=== PATIENT | female | born 1955 | race Caucasian/White ===

== ENCOUNTER 2019-06-23 15:15 | Inpatient (IN) | payer MEDICAID ==
[~2019-06-23] VITALS: Ht 157.5 cm; Wt 60.8 kg
[2019-06-23 15:18] VITALS: BP 147/76
--- NOTE | 2019-06-23 15:23 | NUR ---
W/C ASSIST TO BED 04
--- NOTE | 2019-06-23 15:28 | NUR ---
BIB DAUGHTER WITH CC: N/V X 2 WEEKS INITIALLY WOULD ONLY VOMIT ONCE DAILY. NOW PT WOULD "VOMIT ALL DAY". ALSO STATES LLQ PAIN X TODAY ERYTHEMATOUS LESIONS ON RT BREAST COVERED WITH DRESSING FROM HOME HX- RT BREAST CA DX IN SUMMER 2018 (NO [place])
--- NOTE | 2019-06-23 15:36 | NUR ---
DR. SILVA EVALUATING PT AT BEDSIDE
--- NOTE | 2019-06-23 15:38 | NUR ---
LABS DRAWN AT BEDSIDE VIA LT AC 20.
[2019-06-23] MEDS ORDERED: NACL 0.9% 1,000 ML IV SCH (15:41)
[2019-06-23] MEDS ORDERED: MORPHINE SULFATE 2 MG/ML SYR IVP ONE (15:45)
[2019-06-23] MEDS ORDERED: ONDANSETRON 4 MG/2 ML VIAL IVP ONE (15:45)
--- NOTE | 2019-06-23 15:46 | NUR ---
EMT AT BEDSIDE FOR EKG
--- NOTE | 2019-06-23 15:48 | NUR ---
INTERN RETAIL AT BEDSIDE
[2019-06-23 15:56] LABS: BASOPHILS % (AUTO) 0.4 % (0.0-2.0); EOSINOPHILS % (AUTO) 0.3 % (0.0-4.0); HEMATOCRIT 41.4 % (36-48); HEMOGLOBIN 13.8 g/dL (12.0-16.0); LYMPHOCYTES # (AUTO) 1.5 K/uL (2.5-16.5); LYMPHOCYTES % (AUTO) 14.2 % (20.5-51.1); MEAN CORPUSCULAR HEMOGLOBIN 29 pg (27-31); MEAN CORPUSCULAR HGB CONC 33 g/dL (33-37); MEAN CORPUSCULAR VOLUME 85.9 fL (80-94); MONOCYTES # (AUTO) 0.5 K/uL (0.8-1.0); MONOCYTES % (AUTO) 4.9 % (1.7-9.3); NEUTROPHILS # (AUTO) 8.3 K/uL (1.8-7.7); NEUTROPHILS % (AUTO) 80.2 % (42.2-75.2); PLATELET COUNT (AUTO) 263 K/uL (140-450); RED BLOOD CELL COUNT(AUTO) 4.81 MIL/uL (4.20-5.40); RED CELL DISTRIBUTION WIDTH 14.8 % (11.6-13.7); WHITE BLOOD COUNT (AUTO) 10.4 K/uL (4.8-10.8)
--- NOTE | 2019-06-23 16:03 | NUR ---
PT STATES SHE JUST VOIDED BEFORE CHECKING INTO ER. UNABLE TO PROVIDE URINE SAMPLE AT THIS TIME. IVF INFUSING THROUGH LT AC 20 AT THIS TIME. PT IS CONTINENT. DAUGHTER WILL LET STAFF KNOW WHEN PT IS READY TO PROVIDE URINE SAMPLE.
[2019-06-23 16:09] LABS: PROTHROMBIN TIME 12.1 secs (10.8-13.4)
[2019-06-23 16:11] LABS: ALBUMIN 3.3 g/dL (3.4-5.0); ANION GAP 17.1 (8-16); CREATININE 1.1 mg/dL (0.6-1.3); POTASSIUM 3.1 mmol/L (3.5-5.1); TOTAL BILIRUBIN 0.3 mg/dL (0.0-1.0)
--- NOTE | 2019-06-23 16:32 | NUR ---
CAMPAIGN ASSOCIATE AT BEDSIDE TO TAKE PATIENT TO CT
--- NOTE | 2019-06-23 16:32 | NUR ---
PT STATES SHE WILL TRY TO PROVIDE URINE SAMPLE AFTER CT SCAN
[2019-06-23] MEDS ORDERED: POTASSIUM CHL 30 MEQ/ D5-1/2NS 1,000 ML IV ONE (16:35)
--- NOTE | 2019-06-23 16:35 | NUR ---
TO CT [place]AN [place]
[2019-06-23] MEDS ORDERED: POTASSIUM CHL 40 MEQ/ D5-1/2NS 1,000 ML IV ONE ×2 (16:45→16:50)
--- NOTE | 2019-06-23 16:57 | NUR ---
PT STILL IN CT SCAN, WILL ADMIN ORDERED D5-1/2NS-40 MEQ POTASSIUM WHEN PT IS BACK FROM CT.
[2019-06-23] MEDS ORDERED: VANCOMYCIN 1,000 MG in DEXTROSE 5% 250 ML IV ONE (17:10)
[2019-06-23] MEDS ORDERED: PIPERACILLIN/TAZOBACTAM 3.375 GM in DEXTROSE 5% 50 ML IV ONE (17:10)
--- NOTE | 2019-06-23 17:16 | NUR ---
WALKED URINE SAMPLE TO LAB
[2019-06-23] MEDS ORDERED: PIPERACILLIN/TAZOBACTAM 3.375 GM VIAL IV ONE ×2 (17:17→22:50)
[2019-06-23] MEDS ORDERED: VANCOMYCIN 1,000 MG VIAL ONE (17:17)
[2019-06-23 17:19] LABS: APPEARANCE,URINE CLEAR (CLEAR); BILIRUBIN,URINE NEGATIVE (NEGATIVE); BLOOD, URINE NEGATIVE (NEGATIVE); COLOR,URINE YELLOW (YELLOW); LEUKOCYTE ESTERASE ,URINE NEGATIVE (NEGATIVE); NITRITE, URINE NEGATIVE (NEGATIVE); PH,URINE 6.5 (5.0-9.0); UGLUCOSE NEGATIVE (NEGATIVE)
--- NOTE | 2019-06-23 17:38 | NUR ---
PT STATES "I FEEL A LOT BETTER NOW"
[2019-06-23] MEDS: NACL 0.9% 1,000 ML IV SCH (17:39)
[2019-06-23] MEDS ORDERED: DOCUSATE SODIUM 100 MG GELCAP PO PRN (17:40)
[2019-06-23] MEDS ORDERED: ACETAMINOPHEN 325 MG TAB PO PRN (17:40)
[2019-06-23] MEDS ORDERED: ONDANSETRON 4 MG/2 ML VIAL IM/IVP PRN (17:40)
--- NOTE | 2019-06-23 17:40 | NUR ---
DR SILVA RE-EVALUATING PT AT BEDSIDE
[2019-06-23 18:11] LABS: BARBITURATE, URINE NEGATIVE ng/ml (NEG <=200); BENZODIAZEPINE, URINE NEGATIVE ng/mL (NEG <=200); CANNABINOID, URINE NEGATIVE ng/mL (NEG <=50); COCAINE, URINE NEGATIVE ng/mL (NEG <=300); OPIATE, URINE POSITIVE ng/mL (NEG <=2000); PHENCYCLIDINE SCREEN,URINE NEGATIVE ng/mL (NEG <=25)
[2019-06-23 18:24] LABS: PHOSPHORUS 4.1 mg/dL (2.5-4.9); THYROID STIMULATING HORMONE 2.06 uIU/mL (0.34-3.74)
--- NOTE | 2019-06-23 18:40 | NUR ---
Patient will be admitted to care of DR QURESHI. Admited to MED SURG. Will go to room 106A. Belongings list completed. Report to BRITANY ARANDA.
--- NOTE | 2019-06-23 19:18 | NUR ---
RECEIVED REPORT FROM BRITANY ARANDA AND NAV ARANDA DAYSHIFT NURSES AT BEDSIDE FOR CONTINUITY OF CARE. PT IN STABLE CONDITION NO C/O OF PAIN , RESPIRATORY DISTRESS OR NAUSEA. PT IN LOW BED AND ALL FALLS PRECAUTIONS IN PLACE.
[2019-06-23] MEDS ORDERED: DEXTROSE 50% 50 ML SYR IVP PRN (19:20)
[2019-06-23] MEDS ORDERED: INSULIN LISPRO SLIDING SCALE 100 UNITS/ML VIAL SUBQ PRN (19:20)
[2019-06-23 19:30] VITALS: BP 120/78
--- NOTE | 2019-06-23 20:00 | NUR ---
MD RESIDENT SHRUTI MADE AWARE THAT LACTIC ACID TRENDING DOWN NOW NEW ORDERS. MD IS AT PT BEDSIDE EVALUATING PT. PT CONTINUES TO RUN VANCOMYCIN AT THIS TIME IV SITES ON R AND LEFT AC INTACT AND ASYMPTOMATIC. ALL FALLS PRECAUTIONS IN PLACE.
[2019-06-23] MEDS ORDERED: VANCOMYCIN PER PHARMACY MC PRN (20:35)
[2019-06-23] MEDS: BLOOD GLUCOSE MONITORING 1 DEV DEV FS SCH (21:00)
--- NOTE | 2019-06-23 21:00 | NUR ---
PT IN BED NO C/O VOICED AT THIS TIME. IV SITES INTACT PT CONTINUES TO FINISH ORDERED D51/2NS WITH 40MEQS AT ORDERED RATE. PT WAS ASKED ADMISSION QUESTIONS USING [employer] PHONE SYSTEM WITH [employer] NUMBER [id number]. MEDICATION THAT WAS ORDERED AT THIS TIME WAS EXPLAINED TO PT AND EDUCATION PROVIDED AT BEDSIDE. ORDERED ZOSYN WAS HUNG AND RUNNING AT 100 MLS/HR. ALL REQUESTED NEEDS ATTENDED AND CALL CEBALLOS IN REACH. ALL FALLS PRECAUTIONS IN PLACE.
[2019-06-23] MEDS: LACTOBACILLUS RHAMNOSUS GG 1 EACH CAP PO SCH (23:00)
[2019-06-23] MEDS: HYDROcodone/APAP 5/325 MG 1 TAB TAB PO PRN (23:01)
[2019-06-23] MEDS: PIPERACILLIN/TAZOBACTAM 3.375 GM in DEXTROSE 5% 50 ML IV SCH (23:02)
--- NOTE | 2019-06-23 23:10 | NUR ---
PT C/O OF A HEADACHE AND WAS GIVEN 1 TAB OF NORCO FOR 6/10 PAIN , WILL MONITOR FOR EFFECT. ALSO CULTURE OF RIGHT BREAST WOUND WAS TAKEN. WOUND CLEANSED AND WOUND CARE PROVIDED. WOUND IS OPEN WITH MODERATE SEROSANGUINEOUS DRAINAGE AND MILD ODOR. ALL FALLS PRECAUTIONS IN PLACE.
[2019-06-24] VITALS: BP 106/70
--- NOTE | 2019-06-24 01:00 | NUR ---
PT IN BED ASLEEP NO S/S OF PAIN OR DISTRESS NOTED. FLUIDS RUNNING ORDERED. ALL FALLS PRECAUTIONS IN PLACE.
[2019-06-24] MEDS: PIPERACILLIN/TAZOBACTAM 3.375 GM in DEXTROSE 5% 50 ML IV SCH ×3 (05:00→20:29)
--- NOTE | 2019-06-24 05:45 | NUR ---
IV ABT ZOSYN HUNG AND RUNNING AT 100MLS/HR. FINGERSTICK IS 114 NO HUMALOG COVERAGE NEEDED. PT HAS NO C/O VOICED. RIGHT BREAST DRESSING REINFORCED. PT HAS NO C/O OF PAIN AND ALL REQUESTED NEEDS ATTENDED BY STAFF ALL FALLS PRECAUTIONS IN PLACE.
[2019-06-24] MEDS ORDERED: PIPERACILLIN/TAZOBACTAM 3.375 GM VIAL IV ONE (05:57)
[2019-06-24] MEDS: BLOOD GLUCOSE MONITORING 1 DEV DEV FS SCH ×3 (06:20→16:32)
--- NOTE | 2019-06-24 07:00 | NUR ---
RECEIVED PT. FROM ETL DATA ARCHITECT NURSEGENESIS. PT. IS ASLEEP AND IN BED. IV ON THE RIGHT AC 20G WITH D5 1/2NS RUNNING AT 100ML/HR AND SALINE LOCK ON THE LEFT AC 20G. PT. IS FULL CODE, NO KNOWN ALLERGIES. PT. IS ON ROOM AIR WITH O2 STAT OF 91%. FALL PRECAUTION IN PLACE. CALL LIGHT WITHIN REACH. WILL CONTINUE TO MONITOR.
[2019-06-24 07:42] LABS: BASOPHILS # (AUTO) 0.1 K/uL (0.00-0.22); BASOPHILS % (AUTO) 1.1 % (0.0-2.0); EOSINOPHILS # (AUTO) 0.1 K/uL (0-0.4); EOSINOPHILS % (AUTO) 0.7 % (0.0-4.0); HEMATOCRIT 37.6 % (36-48); HEMOGLOBIN 12.4 g/dL (12.0-16.0); LYMPHOCYTES # (AUTO) 1.2 K/uL (2.5-16.5); LYMPHOCYTES % (AUTO) 15.3 % (20.5-51.1); MEAN CORPUSCULAR HEMOGLOBIN 29 pg (27-31); MEAN CORPUSCULAR HGB CONC 33 g/dL (33-37); MEAN CORPUSCULAR VOLUME 86.9 fL (80-94); MONOCYTES # (AUTO) 0.4 K/uL (0.8-1.0); MONOCYTES % (AUTO) 4.5 % (1.7-9.3); NEUTROPHILS # (AUTO) 6.3 K/uL (1.8-7.7); NEUTROPHILS % (AUTO) 78.4 % (42.2-75.2); PLATELET COUNT (AUTO) 213 K/uL (140-450); RED BLOOD CELL COUNT(AUTO) 4.33 MIL/uL (4.20-5.40); RED CELL DISTRIBUTION WIDTH 15.3 % (11.6-13.7); WHITE BLOOD COUNT (AUTO) 8.1 K/uL (4.8-10.8)
[2019-06-24 07:45] LABS: ANION GAP 14.4 (8-16); CARBON DIOXIDE 25.2 mmol/L (21-32); CREATININE 0.9 mg/dL (0.6-1.3); POTASSIUM 3.6 mmol/L (3.5-5.1)
[2019-06-24 07:53] LABS: CHOL/HDL RATIO 4.2 (1-4.5)
[2019-06-24 08:00] VITALS: BP 127/73
--- NOTE | 2019-06-24 08:41 | NUR ---
PATIENT HAS BEEN SCREENED AND CATEGORIZED HIGH NUTRITION RISK. PATIENT WILL BE SEEN WITHIN 1-2 DAYS OF ADMISSION. 06/24/19 06/25/[address]
[2019-06-24] MEDS: NACL 0.9% 1,000 ML IV SCH (09:39)
[2019-06-24] MEDS: FAMOTIDINE 20 MG TAB PO SCH (09:48)
[2019-06-24] MEDS: LACTOBACILLUS RHAMNOSUS GG 1 EACH CAP PO SCH (09:48)
--- NOTE | 2019-06-24 09:50 | NUR ---
MORNING MEDICATIONS GIVEN. NO SIGNS OF DISTRESS NOTED. WILL CONTINUE TO MONITOR.
--- NOTE | 2019-06-24 10:00 | NUR ---
CHANGED RIGHT BREAST DRESSING. SANGUINEOUS AND PURULENT DISCHARGE NOTED. PT. VERBALIZES NO PAIN AND NO SIGNS OF DISTRESS NOTED. WILL CONTINUE TO MONITOR.
--- NOTE | 2019-06-24 12:00 | NUR ---
BLOOD GLUCOSE CHECKED WITH VALUE OF 102. NO INSULIN COVERAGE NEEDED. PT IS ASLEEP AND IN BED, REFUSING TO EAT LUNCH. NO SIGNS DISTRESS NOTED. WILL CONTINUE TO MONITOR.
[2019-06-24 16:12] VITALS: BP 129/77
--- NOTE | 2019-06-24 16:45 | NUR ---
BLOOD GLUCOSE CHECKED WITH VALUE OF 108. NO INSULIN COVERAGE NEEDED. VANCOCIN IV IS STARTED. NO SIGNS OF DISTRESS NOTED. PT. VERBALIZES NO PAIN. WILL CONTINUE TO MONITOR.
[2019-06-24] MEDS ORDERED: VANCOMYCIN 1,000 MG in DEXTROSE 5% 250 ML IV SCH (17:00)
[2019-06-24] MEDS ORDERED: VANCOMYCIN 1GM/DEXT 5% PREMIX 200 ML IV SCH (17:00)
--- NOTE | 2019-06-24 19:05 | NUR ---
ENDORSED PT. TO LEGAL INSTRUCTOR NURSE, GENESIS, FOR CONTINUITY OF CARE.
--- NOTE | 2019-06-24 19:05 | NUR ---
RECEIVED REPORT FROM HECTOR RN DAYSHIFT NURSE AT BEDSIDE FOR CONTINUITY OF CARE. PT IN BED SLEEPING, WITH NO S/S OF PAIN OR DISTRESS NOTED PT RESPIRATIONS ARE EVEN AND UNLABORED. SHE HAS 2 IV SITES RAC 20G INTACT AND ASYMPTOMATIC RUNNING NORMAL SALINE AT 60, WELL A LAC 20 GUAGE WHICH IS INTACT AND ASYMPTOMATIC. ALL FALLS PRECAUTIONS IN PLACE.
[2019-06-24] MEDS: HYDROcodone/APAP 5/325 MG 1 TAB TAB PO PRN (20:32)
--- NOTE | 2019-06-24 20:41 | NUR ---
PT UP OUT OF BED AND ASSISTED TO TOILET. PT C/O OF MODERATE HEADACHE. THROUGH ROLLER STAKER KLEBER MATOS PT GIVEN DUE MEDS OF HEPARIN ZOSYN AND NORCO PO PRN FOR PAIN MEDS. PT ACKNOWLEDGED UNDERSTANDING OF MEDICATION ADMINISTRATION. ALL REQUESTED NEEDS ATTENDED BY STAFF. AND ALL FALLS PRECAUTIONS IN PLACE.
[2019-06-25] VITALS: BP 126/75
[2019-06-25] MEDS: MORPHINE SULFATE 2 MG/ML SYR IVP PRN ×2 (00:36→09:58)
--- NOTE | 2019-06-25 00:45 | NUR ---
PT ASSISTED TO TOILET AND BACK, SHE HAS C/O OF SEVERE HEADACHE 12/12. PT 02 WAS AT 90%. PT PLACE ON 2 LITERS VIA N/C. AND WAS GIVEN IVP MORPHINE FOR SEVERE PAIN. V/S FOLLOWS: T 98.3 P 96 R 18 B/P 126/75 02 97% WITH 2 LITERS VIA N/C. ALL OTHER REQUESTED NEEDS ATTENDED BY STAFF AND ALL FALLS PRECAUTIONS IN PLACE.
[2019-06-25 06:20] LABS: HEMATOCRIT 36.9 % (36-48); HEMOGLOBIN 12.2 g/dL (12.0-16.0); MEAN CORPUSCULAR HEMOGLOBIN 29 pg (27-31); MEAN CORPUSCULAR HGB CONC 33 g/dL (33-37); MEAN CORPUSCULAR VOLUME 86.9 fL (80-94); PLATELET COUNT (AUTO) 223 K/uL (140-450); RED BLOOD CELL COUNT(AUTO) 4.24 MIL/uL (4.20-5.40); RED CELL DISTRIBUTION WIDTH 15.2 % (11.6-13.7); WHITE BLOOD COUNT (AUTO) 9.3 K/uL (4.8-10.8)
[2019-06-25 06:31] LABS: CREATININE 0.8 mg/dL (0.6-1.3)
[2019-06-25] MEDS: NACL 0.9% 1,000 ML IV SCH (06:34)
[2019-06-25] MEDS: PIPERACILLIN/TAZOBACTAM 3.375 GM in DEXTROSE 5% 50 ML IV SCH ×2 (06:34→14:58)
[2019-06-25 06:40] LABS: PHOSPHORUS 3.8 mg/dL (2.5-4.9)
[2019-06-25] MEDS ORDERED: HYDR-5122 PO (06:59)
--- NOTE | 2019-06-25 07:00 | NUR ---
RECEIVED PATIENT FROM TRIAGE SPECIALIST NURSE GENESIS-ROSI. PT RESTING IN BED. INTRODUCED SELF. DISCUSSED PLAN OF CARE AND PT VERBALIZED UNDERSTANDING. AOX3- CONFUSED, TAJIK SPEAKING. FALL PRECAUTIONS IN PLACE. RIGHT AC #22G WITH NS @60ML/HR. LEFT AC #22G SL. RIGHT BREAST CANCER, NOT INTACT, COVERED WITH DRESSING. NO S/S OF RESPIRATORY DISTRESS OR DISCOMFORT NOTED AT THIS TIME. WILL CONTINUE TO MONITOR.
[2019-06-25 07:17] LABS: EOSINOPHILS % (MANUAL) 6 % (0-4); LYMPHOCYTES % (MANUAL) 13 % (20-46); MONOCYTES % (MANUAL) 4 % (5-12)
[2019-06-25 08:00] VITALS: BP 139/77
[2019-06-25 08:06] LABS: T4 (THYROXINE) 10.1 ug/dL (4.5-12.0)
[2019-06-25] MEDS ORDERED: ONDA8TAB PO (08:11)
[2019-06-25] MEDS ORDERED: LACT-81 PO (08:15)
[2019-06-25] MEDS ORDERED: AMOX-999 PO (08:15)
[2019-06-25] MEDS ORDERED: POTASSIUM CHLORIDE 40 MEQ, LIDOCAINE MPF 1% 25 MG in NACL 0.9% 250 ML IV SCH (09:00)
--- NOTE | 2019-06-25 09:00 | NUR ---
DISCHARGE PLANNING: THIS IS A 63 Y/O FEMALE PATIENT FROM HOME, WHO CAME IN DUE TO NAUSEA AND VOMITING. PAST MEDICAL HISTORY INCLUDE RIGHT BREAST CA. INITIAL DIAGNOSIS OF METASTATIC BREAST CA, CELLULITIS. CURRENT LABS INCLUDE WBC 9.3, H/H 12.2/36.9, NA/K 138/3.0, BUN/CREA 7/0.8. UDS POSITIVE FOR OPIATES. MRSA NARES, URINE, BLOOD AND BLOOD C/S PENDING. SURGICAL CONSULT IN PLACE. FOR DC HOME TODAY.
[2019-06-25] MEDS: FAMOTIDINE 20 MG TAB PO SCH (09:11)
[2019-06-25] MEDS: LACTOBACILLUS RHAMNOSUS GG 1 EACH CAP PO SCH (09:11)
--- NOTE | 2019-06-25 09:14 | NUR ---
SCHEDULED MEDICATION CULTURALLE, PEPCID AND HEPARIN GIVEN AND TOLERATED WELL. HEPARIN GIVEN ON RIGHT UMBILICAL AND TOLERATED WELL. NO S/S OF RESPIRATORY DISTRESS OF DISCOMFORT NOTED AT THIS TIME. WILL CONTINUE TO MONITOR.
--- NOTE | 2019-06-25 09:57 | NUR ---
PATIENT C/O SEVERE HEADACHE 01/11 AND REQUESTING MORPHINE. GIVEN AND TOLERATED WELL. SCHEDULED MEDICATION POTASSIUM CHLORIDE IV BAG GIVEN AND TOLERATED WELL. NO S/S OF RESPIRATORY DISTRESS OR DISCOMFORT NOTED. WILL CONTINUE TO MONITOR.
--- NOTE | 2019-06-25 10:40 | NUR ---
WOUND CARE EVALUATION NOTE: WOUND CARE EVALUATION DONE WITH THIS 63 Y/O FEMALE PT. WITH RIGHT BREAST CARCINOMA ULCER. POC DISCUSSED WITH PT. WITH PRIMARY RN TRANSLATED IN MALTESE, PT. STATED SHE IS ABLE TO DO HER OWN WOUND CARE . ALL QUESTIONS ANSWERED. POC DISCUSSED WITH DR. ISBELL PER DOCTOR, PT MAY BE SEEN OUT PATIENT ONCOLOGY THRU [facility]. -RIGHT BREAST CARCINOMA ULCER [id number] SMALL AMOUNT SEROSANGUINEOUS DRAINAGE, MILD ODOR, LISS WOUND SKIN INTACT, NO PAIN. RECOMMENDATION -CLEANSE RIGHT BREAST WITH NS. PAT DRY, APPLY CALCIUM ALGINATE DRESSING COVER WITH ABD. PAD, SECURED WITH TAPE CHANGE Q3 DAYS AND PRN.
[2019-06-25] MEDS: HYDROcodone/APAP 5/325 MG 1 TAB TAB PO PRN (11:12)
--- NOTE | 2019-06-25 11:12 | NUR ---
PATIENT CONTINUES TO C/O HEADACHE 10/11. EXPLAINED TO PATIENT THAT MORPHINE IS ONLY AVAILABLE Q4H. OFFERED NORCO AND PATIENT ACCEPTED. GIVEN AND TOLERATED WELL. NO S/S OF RESPIRATORY DISTRESS OR DISCOMFORT. WILL CONTINUE TO MONITOR.
--- NOTE | 2019-06-25 12:23 | NUR ---
06/25/19 RD INITIAL ASSESSMENT COMPLETED PLEASE REFER TO NUTRITION ASSESSMENT UNDER CARE ACTIVITY FOR ESTIMATED NUTRITIONAL NEEDS. 1. CONTINUE PUREE CCHO 60GM DIET TOLERATED 2. RECOMMEND ENSURE BID 3. RD PROVIDED EDUCATION HANDOUT ON HOW TO INCREASE PROTEIN AND CALORIE INTAKE IN [place]. 4. RD TO FOLLOW-UP 2-3 DAYS, HIGH RISK MANUEL RAMIREZ, RD
[2019-06-25] MEDS ORDERED: ALGINATE ROPE MC SCH (13:00)
[2019-06-25 14:42] LABS: ANION GAP 16.4 (8-16); CARBON DIOXIDE 22.9 mmol/L (21-32); CREATININE 0.8 mg/dL (0.6-1.3); POTASSIUM 4.3 mmol/L (3.5-5.1)
--- NOTE | 2019-06-25 14:58 | NUR ---
SCHEDULED MEDICATION ZOSYN GIVEN AND TOLERATED WELL. NO S/S OF RESPIRATORY DISTRESS OR DISCOMFORT NOTED AT THIS TIME. WILL CONTINUE TO MONITOR.
[2019-06-25 16:00] VITALS: BP 113/88
[2019-06-25 18:02] VITALS: BP 113/88
[2019-06-25] MEDS ORDERED: SULF-58 PO (18:45)
[2019-06-25] MEDS ORDERED: PNEUMOCOCCAL VACCINE 23 MCG/0.5 ML VIAL ONE (18:58)
--- NOTE | 2019-06-25 19:15 | NUR ---
PT ID BANDS TAKEN OFF, IV TAKEN OFF. ASSISTED PT WITH CLOTHING CHANGE. DISCHARGE INSTRUCTIONS GIVEN. PT VERBALIZED UNDRSTANDING. NO S/S OF RESPIRATORY DISTRESS OR DISCOMFORT NOTED. PT STABLE
[2019-06-25] MEDS ORDERED: PNEUMOCOCCAL VACCINE 23 MCG/0.5 ML VIAL IMVAC SCH (20:00)
[2019-06-26] MEDS ORDERED: LEVO750T2 PO (17:41)
== END 2019-06-25 19:15 | disposition home or self-care (01) | DRG 382 ==
LOC: MED 15:15 → MTU 17:45
PROVIDERS: ADMIT General Practice; ATTEND General Practice
PROC: 3E0234Z Introduction of Serum, Toxoid and Vaccine into Muscle, Percutaneous Approach (ICD-10-PCS; principal; 2019-06-25)
DX: C50.911 Malignant neoplasm of unspecified site of right female breast (principal); D68.59 Other primary thrombophilia; C79.9 Secondary malignant neoplasm of unspecified site; E87.2 Acidosis; E44.1 Mild protein-calorie malnutrition; H70.92 Unspecified mastoiditis, left ear; J32.3 Chronic sphenoidal sinusitis; Z68.24 Body mass index [BMI] 24.0-24.9, adult; E87.6 Hypokalemia; R63.4 Abnormal weight loss; R74.0 Nonspecific elevation of levels of transaminase and lactic acid dehydrogenase [LDH]; R73.9 Hyperglycemia, unspecified; K57.30 Diverticulosis of large intestine without perforation or abscess without bleeding; Z98.51 Tubal ligation status; Z90.710 Acquired absence of both cervix and uterus; Z23 Encounter for immunization
CPT/HCPCS: 36415; 70450; 70490; 71045; 71250; 76705; 80048; 80053; 80305; 81003; 82550; 82948; 83036; 83605; 83735; 83880; 84100; 84132; 84436; 84443; 84484; 85025; 85610; 85730; 87040; 87070; 87075; 87081; 87086; 87186; 87205; 90732; 93005; 93970; 96361; 96365; 96368; 96375; 97116; 97161-GP; 99285; A4649; J1644; J2001; J2270; J2405; J2543; J3370; J3480; J7030; J7060; Q0092

== ENCOUNTER 2019-06-26 06:15 | Emergency (ER) | payer MEDICAID ==
[~2019-06-26] VITALS: Ht 154.9 cm; Wt 74.8 kg
[~2019-06-26 06:15] MED LIST: AMOX-999 PO; HYDR-5122 PO; LACT-81 PO; ONDA8TAB PO; SULF-58 PO
--- NOTE | 2019-06-26 06:15 | NUR ---
WHEEL CHAIR ASSISTED TO BED 7.
--- NOTE | 2019-06-26 06:20 | NUR ---
CORRECTION: PATIENT GCS 14 ([id number])
--- NOTE | 2019-06-26 06:20 | NUR ---
63 YEAR OLD FEMALE BROUGHT IN BY FAMILY, STATES SHE HAS NAUSEA AND VOMITTING SINCE MIDNIGHT. PATIENT GCS 15, AOX1 TO NAME. DAUGHTER STATES THAT A NURSE CALLED HER TO COME BACK TO HOSPITAL. PATIENT ALERT AND AWAKE, BREATHING EVEN AND UNLABORED, SKIN WARM AND DRY. BED IN LOWEST POSITION, LOCKED, BED RAIL UPX1. PATIENT PLACED ON MONITOR, VS STABLE, ERMD MADE AWARE OF PT STATUS. PMH - BREAST CANCER ALLERGIES - NKA
[2019-06-26 06:23] VITALS: BP 141/73
--- NOTE | 2019-06-26 06:50 | NUR ---
PATIENT ALERT AND AWAKE, BREATHING EVEN AND UNLABORED
--- NOTE | 2019-06-26 07:22 | NUR ---
PT RESTING IN BED, SIDE RAIL X1
--- NOTE | 2019-06-26 07:22 | NUR ---
REPORT GIVEN TO NELSON ARANDA, TRANSFER OF CARE AT THIS TIME
[2019-06-26] MEDS ORDERED: ONDANSETRON 4 MG/2 ML VIAL IVP ONE (08:05)
[2019-06-26] MEDS ORDERED: NACL 0.9% 1,000 ML IV ONE (08:05)
[2019-06-26 08:39] LABS: HEMATOCRIT 36.9 % (36-48); HEMOGLOBIN 12.3 g/dL (12.0-16.0); MEAN CORPUSCULAR HEMOGLOBIN 29 pg (27-31); MEAN CORPUSCULAR HGB CONC 34 g/dL (33-37); MEAN CORPUSCULAR VOLUME 85.9 fL (80-94); PLATELET COUNT (AUTO) 224 K/uL (140-450); RED BLOOD CELL COUNT(AUTO) 4.29 MIL/uL (4.20-5.40); RED CELL DISTRIBUTION WIDTH 14.8 % (11.6-13.7); WHITE BLOOD COUNT (AUTO) 11.2 K/uL (4.8-10.8)
--- NOTE | 2019-06-26 08:53 | NUR ---
senior wind turbine technician at bedside.
[2019-06-26 08:55] LABS: ALBUMIN 2.8 g/dL (3.4-5.0); ANION GAP 16.4 (8-16); CREATININE 0.8 mg/dL (0.6-1.3); POTASSIUM 3.4 mmol/L (3.5-5.1); TOTAL BILIRUBIN 0.4 mg/dL (0.0-1.0)
[2019-06-26 08:57] LABS: LYMPHOCYTES % (MANUAL) 15 % (20-46); MONOCYTES % (MANUAL) 6 % (5-12)
--- NOTE | 2019-06-26 09:00 | NUR ---
pt reports decrease in nausea. nadr
--- NOTE | 2019-06-26 09:09 | NUR ---
URINE COLLECTED AT 0840, URINE WALKED TO LAB
--- NOTE | 2019-06-26 09:20 | NUR ---
VS STABLE, PT RESTING IN BED, NO COMPLAINTS AT THIS TIME
[2019-06-26 09:59] LABS: APPEARANCE,URINE CLEAR (CLEAR); BILIRUBIN,URINE NEGATIVE (NEGATIVE); BLOOD, URINE NEGATIVE (NEGATIVE); COLOR,URINE YELLOW (YELLOW); LEUKOCYTE ESTERASE ,URINE NEGATIVE (NEGATIVE); NITRITE, URINE NEGATIVE (NEGATIVE); UGLUCOSE NEGATIVE (NEGATIVE)
--- NOTE | 2019-06-26 10:38 | NUR ---
lights turned off for pt comfort
[2019-06-26 11:16] VITALS: BP 129/67
--- NOTE | 2019-06-26 11:16 | NUR ---
Patient discharged with v/s stable. Written and verbal after care instructions given and explained to pts daughter in greek. daughter verbalized understanding of instructions. pt wheelchaired to car. All questions addressed prior to discharge. ID band removed. daughter advised to follow up with PMD. Rx of xofran prn q 8hrs and pecpid daily given. daughter educated on indication of medication including possible reaction and side effects. Opportunity to ask questions provided and answered. daughter states pt has new onset dementia
[2019-06-26] MEDS ORDERED: LEVO750T2 PO (17:41)
== END 2019-06-26 11:16 | disposition home or self-care (01) ==
LOC: MED 06:15
DX: R10.9 Unspecified abdominal pain (principal); R11.2 Nausea with vomiting, unspecified; R07.9 Chest pain, unspecified; R51 Headache; Z85.3 Personal history of malignant neoplasm of breast; Z98.890 Other specified postprocedural states; Z90.710 Acquired absence of both cervix and uterus
CPT/HCPCS: 36415; 71045; 80053; 81003; 83690; 83880; 84484; 85025; 93005; 96361; 96374; 99285; J2405; J7030; Q0092

== ENCOUNTER 2019-06-27 09:52 | Inpatient (IN) | payer MEDICAID ==
[~2019-06-27] VITALS: Ht 152.4 cm; Wt 68.1 kg
[~2019-06-27 09:52] MED LIST changes: -AMOX-999 PO; +LEVO750T2 PO; -SULF-58 PO
[2019-06-27 09:54] VITALS: BP 148/74
[2019-06-27] MEDS ORDERED: NACL 0.9% 1,000 ML IV ONE (10:20)
[2019-06-27 10:53] LABS: HEMATOCRIT 37.6 % (36-48); HEMOGLOBIN 12.5 g/dL (12.0-16.0); MEAN CORPUSCULAR HEMOGLOBIN 29 pg (27-31); MEAN CORPUSCULAR HGB CONC 33 g/dL (33-37); MEAN CORPUSCULAR VOLUME 86.3 fL (80-94); PLATELET COUNT (AUTO) 203 K/uL (140-450); RED BLOOD CELL COUNT(AUTO) 4.35 MIL/uL (4.20-5.40); RED CELL DISTRIBUTION WIDTH 15.2 % (11.6-13.7); WHITE BLOOD COUNT (AUTO) 12.1 K/uL (4.8-10.8)
[2019-06-27 11:10] LABS: ALBUMIN 2.9 g/dL (3.4-5.0); ANION GAP 16.8 (8-16); CARBON DIOXIDE 23.9 mmol/L (21-32); CREATININE 0.8 mg/dL (0.6-1.3); POTASSIUM 3.7 mmol/L (3.5-5.1); TOTAL BILIRUBIN 0.4 mg/dL (0.0-1.0)
[2019-06-27 11:17] LABS: LYMPHOCYTES % (MANUAL) 17 % (20-46); MONOCYTES % (MANUAL) 4 % (5-12)
[2019-06-27] MEDS ORDERED: HYDROcodone/APAP 5/325 MG 1 TAB TAB PO PRN (13:00)
[2019-06-27] MEDS ORDERED: DOCUSATE SODIUM 100 MG GELCAP PO PRN (13:00)
[2019-06-27] MEDS ORDERED: MORPHINE SULFATE 2 MG/ML SYR IVP PRN (13:00)
[2019-06-27] MEDS ORDERED: ONDANSETRON 4 MG/2 ML VIAL IM/IVP PRN (13:00)
[2019-06-27] MEDS ORDERED: LORazepam 2 MG/ML VIAL IM/IVP PRN (13:00)
[2019-06-27] MEDS ORDERED: ACETAMINOPHEN 325 MG TAB PO PRN (13:00)
[2019-06-27] MEDS ORDERED: ZOLPIDEM 5 MG TAB PO PRN (13:00)
[2019-06-27] MEDS ORDERED: ALBUTEROL SULFATE/IPRATROPIU 3 ML SOL IH PRN (13:05)
[2019-06-27 13:24] LABS: APPEARANCE,URINE CLEAR (CLEAR); BILIRUBIN,URINE NEGATIVE (NEGATIVE); BLOOD, URINE NEGATIVE (NEGATIVE); COLOR,URINE YELLOW (YELLOW); LEUKOCYTE ESTERASE ,URINE NEGATIVE (NEGATIVE); NITRITE, URINE NEGATIVE (NEGATIVE); PH,URINE 6.5 (5.0-9.0); UGLUCOSE NEGATIVE (NEGATIVE)
[2019-06-27 13:30] LABS: BARBITURATE, URINE NEGATIVE ng/ml (NEG <=200); BENZODIAZEPINE, URINE NEGATIVE ng/mL (NEG <=200); CANNABINOID, URINE NEGATIVE ng/mL (NEG <=50); COCAINE, URINE NEGATIVE ng/mL (NEG <=300); OPIATE, URINE POSITIVE ng/mL (NEG <=2000); PHENCYCLIDINE SCREEN,URINE NEGATIVE ng/mL (NEG <=25)
[2019-06-27 13:40] VITALS: BP 144/70
[2019-06-27 13:48] LABS: CHOL/HDL RATIO 4.3 (1-4.5); MAGNESIUM 2.1 mg/dL (1.8-2.4); PHOSPHORUS 3.7 mg/dL (2.5-4.9); THYROID STIMULATING HORMONE 1.19 uIU/mL (0.34-3.74)
[2019-06-27] MEDS ORDERED: MECLIZINE 25 MG TAB PO PRN (14:05)
[2019-06-27] MEDS: NACL 0.9% 1,000 ML IV SCH (15:19)
[2019-06-27 16:00] VITALS: BP 155/89
[2019-06-27] MEDS ORDERED: HEPARIN PER PHARMACY MC PRN (16:00)
[2019-06-27] MEDS: PIPERACILLIN/TAZOBACTAM 3.375 GM in DEXTROSE 5% 50 ML IV SCH (17:31)
[2019-06-27] MEDS: hePARIN / DEXT 5% PREMIX 250 ML IV SCH (18:30)
[2019-06-27] MEDS: ALBUTEROL SULFATE/IPRATROPIU 3 ML SOL IH SCH (19:03)
[2019-06-27 20:00] VITALS: BP 146/89
[2019-06-28] VITALS: BP 151/75
[2019-06-28] MEDS: PIPERACILLIN/TAZOBACTAM 3.375 GM in DEXTROSE 5% 50 ML IV SCH ×4 (00:48→18:04)
[2019-06-28] MEDS: hePARIN / DEXT 5% PREMIX 250 ML IV SCH (02:25)
[2019-06-28 04:00] VITALS: BP 136/72
[2019-06-28] MEDS: NACL 0.9% 1,000 ML IV SCH (05:37)
[2019-06-28 06:33] LABS: BASOPHILS % (AUTO) 0.3 % (0.0-2.0); EOSINOPHILS # (AUTO) 0.1 K/uL (0-0.4); EOSINOPHILS % (AUTO) 0.4 % (0.0-4.0); HEMATOCRIT 34.7 % (36-48); HEMOGLOBIN 11.6 g/dL (12.0-16.0); LYMPHOCYTES # (AUTO) 1.7 K/uL (2.5-16.5); LYMPHOCYTES % (AUTO) 12.8 % (20.5-51.1); MEAN CORPUSCULAR HEMOGLOBIN 29 pg (27-31); MEAN CORPUSCULAR HGB CONC 33 g/dL (33-37); MEAN CORPUSCULAR VOLUME 85.7 fL (80-94); MONOCYTES # (AUTO) 0.7 K/uL (0.8-1.0); MONOCYTES % (AUTO) 5.4 % (1.7-9.3); NEUTROPHILS # (AUTO) 10.9 K/uL (1.8-7.7); NEUTROPHILS % (AUTO) 81.1 % (42.2-75.2); PLATELET COUNT (AUTO) 197 K/uL (140-450); RED BLOOD CELL COUNT(AUTO) 4.05 MIL/uL (4.20-5.40); RED CELL DISTRIBUTION WIDTH 15.1 % (11.6-13.7); WHITE BLOOD COUNT (AUTO) 13.4 K/uL (4.8-10.8)
[2019-06-28 06:47] LABS: ANION GAP 18.1 (8-16); CARBON DIOXIDE 21.2 mmol/L (21-32); CREATININE 0.7 mg/dL (0.6-1.3); POTASSIUM 3.3 mmol/L (3.5-5.1)
[2019-06-28 06:53] LABS: PHOSPHORUS 2.8 mg/dL (2.5-4.9)
[2019-06-28] MEDS: ALBUTEROL SULFATE/IPRATROPIU 3 ML SOL IH SCH ×3 (07:48→18:00)
[2019-06-28 08:00] VITALS: BP 137/75
[2019-06-28] MEDS: ECOTRIN 81 MG TABEC PO SCH (09:00)
[2019-06-28] MEDS ORDERED: POTASSIUM CHLORIDE 40 MEQ, LIDOCAINE MPF 1% 25 MG in NACL 0.9% 250 ML IV SCH (10:00)
[2019-06-28] MEDS: DEXT 5% /NACL 0.9% 1,000 ML IV SCH (10:42)
[2019-06-28 12:00] VITALS: BP 131/56
[2019-06-28 16:00] VITALS: BP 119/61
[2019-06-28 20:15] VITALS: BP 109/62
[2019-06-29] VITALS: BP 134/66
[2019-06-29] MEDS: PIPERACILLIN/TAZOBACTAM 3.375 GM in DEXTROSE 5% 50 ML IV SCH ×3 (00:17→12:16)
[2019-06-29] MEDS: DEXT 5% /NACL 0.9% 1,000 ML IV SCH ×2 (01:25→04:57)
[2019-06-29 04:00] VITALS: BP 144/80
[2019-06-29 06:47] LABS: BASOPHILS # (AUTO) 0.1 K/uL (0.00-0.22); BASOPHILS % (AUTO) 0.5 % (0.0-2.0); EOSINOPHILS # (AUTO) 0.2 K/uL (0-0.4); EOSINOPHILS % (AUTO) 1.6 % (0.0-4.0); HEMATOCRIT 32.7 % (36-48); HEMOGLOBIN 11.1 g/dL (12.0-16.0); LYMPHOCYTES # (AUTO) 1.5 K/uL (2.5-16.5); LYMPHOCYTES % (AUTO) 13.7 % (20.5-51.1); MEAN CORPUSCULAR HEMOGLOBIN 29 pg (27-31); MEAN CORPUSCULAR HGB CONC 34 g/dL (33-37); MEAN CORPUSCULAR VOLUME 86.1 fL (80-94); MONOCYTES # (AUTO) 0.6 K/uL (0.8-1.0); MONOCYTES % (AUTO) 5.2 % (1.7-9.3); NEUTROPHILS # (AUTO) 8.5 K/uL (1.8-7.7); PLATELET COUNT (AUTO) 177 K/uL (140-450); RED CELL DISTRIBUTION WIDTH 15.2 % (11.6-13.7); WHITE BLOOD COUNT (AUTO) 10.8 K/uL (4.8-10.8)
[2019-06-29] MEDS: ALBUTEROL SULFATE/IPRATROPIU 3 ML SOL IH SCH ×2 (06:55→13:01)
[2019-06-29 07:01] LABS: MAGNESIUM 1.8 mg/dL (1.8-2.4); PHOSPHORUS 2.5 mg/dL (2.5-4.9)
[2019-06-29 07:16] LABS: ANION GAP 15.4 (8-16); CREATININE 0.7 mg/dL (0.6-1.3); POTASSIUM 3.4 mmol/L (3.5-5.1)
[2019-06-29 08:00] VITALS: BP 144/57
[2019-06-29] MEDS ORDERED: ASCORBIC ACID 500 MG TAB PO SCH (09:00)
[2019-06-29] MEDS: ECOTRIN 81 MG TABEC PO SCH (09:00)
[2019-06-29] MEDS ORDERED: MULTIVITAMIN 1 TAB PO SCH (09:00)
[2019-06-29 12:00] VITALS: BP 96/53
== END 2019-06-29 15:00 | disposition hospice, home (50) | DRG 720 ==
LOC: MED 09:52 → MTU 13:00
PROVIDERS: ADMIT General Practice; ATTEND General Practice
DX: A41.9 Sepsis, unspecified organism (principal); J96.01 Acute respiratory failure with hypoxia; J69.0 Pneumonitis due to inhalation of food and vomit; G93.41 Metabolic encephalopathy; E43 Unspecified severe protein-calorie malnutrition; C79.51 Secondary malignant neoplasm of bone; M84.48XA Pathological fracture, other site, initial encounter for fracture; C50.911 Malignant neoplasm of unspecified site of right female breast; E87.1 Hypo-osmolality and hyponatremia; R62.7 Adult failure to thrive; G90.9 Disorder of the autonomic nervous system, unspecified; D64.9 Anemia, unspecified; E87.6 Hypokalemia; Z51.5 Encounter for palliative care; Z68.29 Body mass index [BMI] 29.0-29.9, adult; Z90.710 Acquired absence of both cervix and uterus
CPT/HCPCS: 36415; 36600; 51702; 70450; 71045; 71275; 80048; 80053; 80305; 81003; 82140; 82803; 83036; 83605; 83690; 83735; 83880; 84100; 84134; 84443; 84484; 85025; 85379; 85610; 85730; 87040; 87070; 87075; 87081; 87186; 87205; 92610; 93005; 93880; 93970; 94640; 97110; 97112; 97116; 97161-GP; 97530; 99285; J1644; J2001; J2543; J3480; J7030; J7042; J7060; Q0092; Q9967